=== PATIENT | female | born 1980 | race Caucasian/White ===

== ENCOUNTER 2021-10-23 19:15 | Day surgery (SDC) | payer OTHER ==
[~2021-10-23] VITALS: Ht 162.6 cm; Wt 77.1 kg
[~2021-10-23 19:15] MED LIST: BCP; DULO30; HYDACE7.5 PO; LORA1 PO; META800 PO; PARO20 PO
[2021-10-23] MEDS ORDERED: Budeprion Xl300 MG PO (19:59)
[2021-10-23] MEDS ORDERED: PARO20 PO (20:01)
[2021-10-23 20:03] LABS: BASOPHILS ABSOLUTE AUTO 0.03 K/mm3 (0.00-0.23); BASOPHILS PERCENT AUTO 0 % (0-2); EOSINOPHILS PERCENT AUTO 0 % (0-6); Hematocrit 44.3 % (33.0-51.0); Hemoglobin 14.8 g/dL (11.5-16.0); IMMATURE GRAN ABSOLUTE AUTO 0.07 K/mm3 (0.00-0.10); IMMATURE GRAN PERCENT AUTO 1 % (0-1); LYMPHOCYTES PERCENT AUTO 7 % (21-46); MONOCYTES ABSOLUTE AUTO 0.49 K/mm3 (0.16-1.47); MONOCYTES PERCENT AUTO 3 % (4-13); Mean Corpuscular HGB 31.6 pg (26.0-34.0); Mean Corpuscular HGB Conc 33.4 g/dL (31.5-36.5); Mean Corpuscular Volume 95 fL (80-100); Mean Platelet Volume 10.9 fL (9.1-12.4); NEUTROPHILS ABSOLUTE AUTO 13.13 K/mm3 (1.96-9.15); NEUTROPHILS PERCENT AUTO 89 % (41-73); Platelet Count 321 K/mm3 (150-400); RDW Coefficient Variation 12.8 % (11.7-14.2); RDW Standard Deviation 44.3 fL (35.1-46.3); Red Blood Cell Count 4.69 M/mm3 (3.80-5.20); White Blood Cell Count 14.72 K/mm3 (4.00-11.30)
[2021-10-23 20:08] LABS: Alanine Aminotransfer (ALT/SGP 24 U/L (12-78); Albumin, Blood 3.6 g/dL (3.4-5.0); Albumin/Globulin Ratio 0.9 (0.8-1.8); Alk Phos 64 U/L (50-136); Anion Gap 5 mmol/L (6-16); Aspartate Aminotrans (AST/SGOT 19 U/L (12-37); Bilirubin, Total 0.4 mg/dL (0.1-1.0); Blood Urea Nitrogen 13 mg/dL (8-24); Bun/Creatinine Ratio 18.2 (12.0-20.0); CO2, Blood 24 mmol/L (21-32); Calcium, Blood 8.8 mg/dL (8.5-10.1); Chloride, Blood 106 mmol/L (98-108); Creatinine, Blood 0.72 mg/dL (0.40-1.00); Glomerular Filtration Rate >60 (60-); Glucose, Blood 125 mg/dL (70-99); Sodium, Blood 135 mmol/L (136-145); Total Protein, Blood 7.6 g/dL (6.4-8.2)
[2021-10-23 20:15] LABS: Source, Urine Clean Catch
[2021-10-23 20:17] LABS: Appearance, Urine Clear (Clear); Bilirubin, Urine Neg (Neg); Blood, Urine Neg (Neg); Color, Urine Yellow (P-Yellow); Glucose Qualitative, Urine Neg (Neg); Ketones, Urine 2+ (Neg); Leukocyte Esterase, Urine Neg (Neg); Nitrite, Urine Neg (Neg); Protein, Urine 2+ (Neg); Urobilinogen, Urine NORM (Normal)
[2021-10-23 20:27] LABS: Amorphous Mod (0-Heavy); Bacteria Rare /hpf; Red Blood Cells, Urine 0-2 /hpf (0-2); Squamous Epithelial Cells Few /hpf (Few); White Blood Cells, Urine 0-2 /hpf (0-5)
[2021-10-23 22:56] LABS: Influenza A, PCR NEGATIVE (NEGATIVE); Influenza B, PCR NEGATIVE (NEGATIVE); Resp Syncytial Virus, PCR NEGATIVE (NEGATIVE); SARS-Cov-2 (COVID-19) PCR, MMC NEGATIVE (NEGATIVE)
--- NOTE | 2021-10-24 00:37 | NUR ---
10/24/21 [address] ELI, NO ANTIBIOTICS INDICATED.
--- NOTE | 2021-10-24 02:17 | NUR ---
Patient up to Ambulate independently. Gait steady. Discharge instructions reviewed with patient. Patient verbalizes understanding. Copy given to patient to take home. Discharged via wheelchair to private car for ride home WITH . PRESCRIPTION FOR PAIN MEDICATION IN PT DISCHARGE FOLDER WITH PT.[facility] REMAINS [facility] PERIPAD. PT REPORTS PAIN IS TOLERABLE AND IS A "DIFFERENT AND BETTER PAIN THAN BEFORE SURGERY". PT ALSO STATED SHE IS "READY TO GO HOME AND GO TO BED IN HER OWN BED" AND PREFERED TO MEET HER AT THE FRONT DOORS SO HER DAUGHTER DID NOT HAVE TO COME INTO THE HOSPITAL. DISCHARGE INST REVIEWED WITH BEFORE DISCHARGE BY GABINO HEBERT.
== END 2021-10-24 02:17 | disposition home or self-care (01) ==
LOC: ER 19:15 → ORSCMMR 23:50 → ER 10-24 01:18 → ORSCMMR 10-24 02:17
PROVIDERS: Obstetrics & Gynecology; Physician Assistant
PROC: 0UT14ZZ Resection of Left Ovary, Percutaneous Endoscopic Approach (ICD-10-PCS; principal; 2021-10-23 23:45)
DX: N83.512 Torsion of left ovary and ovarian pedicle (principal); Z20.822 Contact with and (suspected) exposure to COVID-19; F32.A Depression, unspecified; F41.9 Anxiety disorder, unspecified; N70.92 Oophoritis, unspecified; M79.7 Fibromyalgia; N83.12 Corpus luteum cyst of left ovary; N83.292 Other ovarian cyst, left side; Z79.899 Other long term (current) drug therapy; Z87.891 Personal history of nicotine dependence
CPT/HCPCS: 0241U; 36415; 74176; 76830; 76856; 80053; 81001; 85025; 88305; 96374; 96375; 99285-25; A9270; J0171; J1100; J1170; J1885; J2250; J2270; J2405; J2704; J3010

== ENCOUNTER → 2025-03-18 | Outpatient (CLI) | payer OTHER ==
[~2025-03-18] MED LIST changes: +Budeprion Xl300 MG PO
== END ==
LOC: LAB SHORT 15:15 → LAB 15:15
DX: N39.0 Urinary tract infection, site not specified (principal)
CPT/HCPCS: 87077; 87086; 87186